=== PATIENT | male | born 1965 | race Caucasian/White ===

== ENCOUNTER 2024-12-21 15:28 | Emergency (ER) | payer MEDICAID, OTHER ==
[~2024-12-21] VITALS: Ht 188 cm; Wt 95.3 kg
[~2024-12-21 15:28] MED LIST: CARB200T PO; GABA600T PO; HYDR-3980 PO; IBUP-1955 PO
[2024-12-21 16:22] LABS: PLATELET COUNT (AUTO) 179 K/uL (152-348); RED BLOOD CELL COUNT(AUTO) 3.57 MIL/uL (4.06-5.63); RED CELL DISTRIBUTION WIDTH 13.9 % (12.1-16.2); WHITE BLOOD COUNT (AUTO) 5.8 K/uL (3.6-10.2)
[2024-12-21] MEDS: ALBUTEROL SULFATE 2.5 MG/3 ML NEBU NEB ONE (16:28)
[2024-12-21] MEDS: IPRATROPIUM BROMIDE 0.5 MG/2.5 ML NEBU NEB ONE (16:28)
[2024-12-21 16:29] VITALS: O2SAT 97
[2024-12-21 16:29] LABS: CREATININE 0.7 mg/dL (0.6-1.3); SODIUM SERUM 144.0 mmol/L (136-145); UREA NITROGEN, BLOOD 18.0 mg/dL (7-18)
[2024-12-21] MEDS ORDERED: ALBUTEROL SULFATE 2.5 MG/3 ML NEBU ONE ×2 (16:30)
[2024-12-21] MEDS ORDERED: IPRATROPIUM BROMIDE 0.5 MG/2.5 ML NEBU ONE (16:30)
[2024-12-21 17:00] VITALS: O2SAT 100
[2024-12-21 17:40] VITALS: BP 136/78
[2024-12-21] MEDS ORDERED: ALBU18HF2 INH (17:43)
[2024-12-21] MEDS ORDERED: GUAI5SYR4 PO (17:43)
[2024-12-21 18:09] LABS: LYMPHOCYTES % (MANUAL) 11 % (20-40); MONOCYTES % (MANUAL) 12 % (2-10); NEUTROPHILS % (MANUAL) 77 % (42-75)
[2024-12-21 18:10] LABS: PLATELET ESTIMATE ADEQUATE
[2024-12-21 18:19] VITALS: BP 136/78; O2SAT 97
== END 2024-12-21 18:10 | disposition home or self-care (01) ==
LOC: ER 15:28
DX: J20.8 Acute bronchitis due to other specified organisms (principal); B97.89 Other viral agents as the cause of diseases classified elsewhere; J18.9 Pneumonia, unspecified organism; K21.9 Gastro-esophageal reflux disease without esophagitis; Z79.899 Other long term (current) drug therapy; Z87.01 Personal history of pneumonia (recurrent); Z90.49 Acquired absence of other specified parts of digestive tract; Z87.39 Personal history of other diseases of the musculoskeletal system and connective tissue; Z86.69 Personal history of other diseases of the nervous system and sense organs
CPT/HCPCS: 36415; 70030-TC; 71045; 87040; 94760; A4663; J3590